=== PATIENT | male | born 1955 | race Caucasian/White ===

== ENCOUNTER → 2024-01-03 07:11 | Outpatient (REF) | payer MEDICARE, OTHER, SELFPAY ==
[2024-01-03 09:49] LABS: ALT (SGPT) 36 U/L (0-50); AST (SGOT) 33 U/L (17-59); Albumin 4.3 g/dl (3.5-5.0); Alkaline Phosphatase 56 U/L (38-126); Blood Urea Nitrogen 19 mg/dl (9-20); Calcium 9.6 mg/dl (8.4-10.2); Carbon Dioxide 26 mmol/L (22-30); Chloride 105 mmol/L (98-107); Glucose 93 mg/dl (70-99); HDL Cholesterol 60 mg/dl; LDL Cholesterol, Calculated 90 mg/dl; Potassium 4.4 mmol/L (3.5-5.1); Sodium 140 mmol/L (135-145); Total Bilirubin 0.8 mg/dl (0.2-1.3); Total Cholesterol 169 mg/dl (50-199); Total Protein 7.1 g/dl (6.3-8.2); Triglyceride 98 mg/dl (10-149); Very Low Density Lipoprotein 19 mg/dl (0-30); eGFR > 60.00
[2024-01-03 10:13] LABS: PSA, Total - Screen 2.32 ng/ml (0.0-4.0); TSH Reflex To Free T4 2.16 uIU/ml (0.47-4.68)
[2024-01-04 13:34] LABS: % Free Testosterone 1.7 % (1.6-2.9); Free Testosterone 91 pg/mL (47-244); Sex Hormone Binding Globulin 40 nmol/L (19-76); Total Testosterone 532 ng/dL (300-720)
== END ==
LOC: REG 07:11
PROVIDERS: ATTENDING PHYSICIAN Specialist; FAMILY PHYSICIAN Family Medicine
DX: E78.2 Mixed hyperlipidemia (principal); N52.9 Male erectile dysfunction, unspecified; R97.20 Elevated prostate specific antigen [PSA]; I10 Essential (primary) hypertension; Z12.5 Encounter for screening for malignant neoplasm of prostate
CPT/HCPCS: 36415; 80053; 80061; 84270; 84402; 84403; 84443; G0103

== ENCOUNTER → 2024-01-06 08:43 | Outpatient (REF) | payer MEDICARE, OTHER, SELFPAY ==
[2024-01-06 10:12] LABS: % Basophils 1.2 % (0-2); % Eosinophils 2.2 % (0-6); % Immature Granulocytes 0.5 % (0-0.5); % Lymphocytes 22.4 % (20.5-51.1); % Monocytes 11.9 % (1.7-9.3); % Neutrophils 61.8 % (42.2-75.2); Absolute Basophils 0.1 10^3/uL (0-0.2); Absolute Eosinophils 0.2 10^3/uL (0-0.7); Absolute Lymphocytes 1.7 10^3/uL (1.2-3.4); Absolute Monocytes 0.9 10^3/uL (0.1-0.6); Absolute Neutrophils 4.8 10^3/uL (1.4-6.5); Hemoglobin 15.8 g/dL (13.0-18.0); Mean Corp Hgb Conc. 35.1 g/dL (33.0-37.0); Mean Corpuscular Hgb 30.3 pg (27.0-31.0); Mean Corpuscular Volume 86.4 fL (80.0-94.0); Mean Platelet Volume 10.1 fL (7.4-10.4); Nucleated Red Blood Cells % 0 % (-); Platelet Count 192 10^3/uL (130-400); Red Blood Cell Count 5.21 10^6/uL (4.70-6.10); Red Cell Dist. Width 13.4 % (11.5-14.5); White Blood Cell Count 7.8 10^3/uL (4.8-10.8)
== END ==
LOC: REG 08:43
PROVIDERS: ATTENDING PHYSICIAN Family Medicine
DX: E78.2 Mixed hyperlipidemia (principal); N52.9 Male erectile dysfunction, unspecified; R97.20 Elevated prostate specific antigen [PSA]; I10 Essential (primary) hypertension; Z12.5 Encounter for screening for malignant neoplasm of prostate
CPT/HCPCS: 85025

== ENCOUNTER → 2024-09-02 07:20 | Outpatient (REF) | payer MEDICARE, OTHER, SELFPAY ==
[2024-09-02 07:50] LABS: % Basophils 1.2 % (0-2); % Eosinophils 3.6 % (0-6); % Immature Granulocytes 0.7 % (0-0.5); % Lymphocytes 27.2 % (20.5-51.1); % Monocytes 9.5 % (1.7-9.3); % Neutrophils 57.8 % (42.2-75.2); Absolute Basophils 0.1 10^3/uL (0-0.2); Absolute Eosinophils 0.3 10^3/uL (0-0.7); Absolute Immature Granulocytes 0.1 10^3/uL (0-0.05); Absolute Lymphocytes 2.4 10^3/uL (1.2-3.4); Absolute Monocytes 0.9 10^3/uL (0.1-0.6); Absolute Neutrophils 5.2 10^3/uL (1.4-6.5); Hematocrit 47.1 % (39.0-52.0); Hemoglobin 15.9 g/dL (13.0-18.0); Mean Corp Hgb Conc. 33.8 g/dL (33.0-37.0); Mean Corpuscular Hgb 29.6 pg (27.0-31.0); Mean Corpuscular Volume 87.7 fL (80.0-94.0); Mean Platelet Volume 9.5 fL (7.4-10.4); Nucleated Red Blood Cells % 0 % (-); Platelet Count 184 10^3/uL (130-400); Red Blood Cell Count 5.37 10^6/uL (4.70-6.10); Red Cell Dist. Width 13.7 % (11.5-14.5); White Blood Cell Count 8.9 10^3/uL (4.8-10.8)
[2024-09-02 08:32] LABS: ALT (SGPT) 39 U/L (0-50); AST (SGOT) 27 U/L (17-59); Albumin 4.7 g/dl (3.5-5.0); Alkaline Phosphatase 59 U/L (38-126); Blood Urea Nitrogen 17 mg/dl (9-20); Calcium 9.6 mg/dl (8.4-10.2); Carbon Dioxide 28 mmol/L (22-30); Chloride 102 mmol/L (98-107); Glucose 94 mg/dl (70-99); HDL Cholesterol 68 mg/dl; LDL Cholesterol, Calculated 84 mg/dl; Potassium 4.5 mmol/L (3.5-5.1); Sodium 139 mmol/L (135-145); Total Cholesterol 179 mg/dl (50-199); Total Protein 7.3 g/dl (6.3-8.2); Triglyceride 137 mg/dl (10-149); Very Low Density Lipoprotein 27 mg/dl (0-30); eGFR > 60.00
[2024-09-02 09:08] LABS: PSA, Total - Screen 1.75 ng/ml (0.0-4.0); TSH Reflex To Free T4 3.83 uIU/ml (0.47-4.68)
== END ==
LOC: REG 07:20
PROVIDERS: ATTENDING PHYSICIAN Specialist; FAMILY PHYSICIAN Family Medicine
DX: R97.20 Elevated prostate specific antigen [PSA] (principal); Z12.5 Encounter for screening for malignant neoplasm of prostate; I10 Essential (primary) hypertension; E78.2 Mixed hyperlipidemia; Z68.39 Body mass index [BMI] 39.0-39.9, adult
CPT/HCPCS: 36415; 80053; 80061; 84443; 85025; G0103